=== PATIENT | male | born 1940 | race Caucasian/White ===

== ENCOUNTER → 2017-01-13 | Outpatient (CLI) | payer MEDICARE ==
[~2017-01-13] MED LIST: ASPIRIN81 M1 PO; CLOPIDOGREL75 MG PO; FUROSEMIDE40 MG PO; HCTZ PO; K-DUR20 ME1 PO; KROGER PHARMACY; LIPITOR PO; LISINOPRIL PO; LO-DOSE ASPIRIN81 M1 PO; LOPRESSOR PO; MULTIPLE VITAMI1 T11 PO; NORVASC PO; NORVASC10 MG PO; PLAVIX PO; PRINIVIL40 MG PO; RIVASTIGMINE1.5 MG PO; SEROQUEL100 MG PO; SIMVASTATIN20 MG PO; TOPROL XL PO; ZOCOR20 MG PO
--- NOTE | ~2017-01-13 | EKG ---
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
[2017-01-13 15:06] LABS: CALCIUM SERUM 9.7 mg/dL (8.4-10.2); CREATININE SERUM 1.5 mg/dL (0.6-1.4); POTASSIUM 4.8 mmol/L (3.5-5.1)
== END | disposition home or self-care (01) ==
LOC: CAMB 12:52
PROVIDERS: Surgery
DX: Z01.818 Encounter for other preprocedural examination (principal); K40.20 Bilateral inguinal hernia, without obstruction or gangrene, not specified as recurrent; R94.31 Abnormal electrocardiogram [ECG] [EKG]; Z95.0 Presence of cardiac pacemaker
CPT/HCPCS: 36415; 80048; 93005

== ENCOUNTER → 2017-01-21 | Day surgery (SDC) | payer MEDICARE ==
--- NOTE | ~2017-01-21 | OR ---
Unit #: [id number] #: [id number] Patient: SHANNON BHAKTA [id number] [facility] [place], [place] [address] [id number] O MR#: [id number] NAME: SHANNON BHAKTA. ROOM: Date of Procedure: 01/21/2017 Admission Date: 01/21/2017 Surgeon: Balbir Lee M.D. : 1940 Attending Physician: Balbir Lee M.D. Primary Care Physician: Nahomy Hardwick M.D. OPERATIVE REPORT PREOPERATIVE DIAGNOSES 1. Right-sided direct inguinal hernia incarcerated. 2. Left-sided direct inguinal hernia non-incarcerated. PROCEDURES PERFORMED 1. Laparoscopic preperitoneal inguinal hernia repair of incarcerated right inguinal hernia. 2. Laparoscopic preperitoneal inguinal hernia repair of left inguinal hernia. PROTEIN SPECIALIST Abrahan Zuluaga M.D. ANESTHESIA General endotracheal anesthesia. ESTIMATED BLOOD LOSS Minimal. IV FLUIDS 800 crystalloid. COMPLICATIONS None. INDICATIONS FOR PROCEDURE The patient is a 76-year-old gentleman with large hernia in the right side and small hernia in the left. He presents for repair. DESCRIPTION OF PROCEDURE The patient was taken to the operating theater and placed in supine position. General anesthesia was induced. The abdomen was prepped and draped. An infraumbilical incision was then made. A small incision was made in the anterior sheath. I created the preperitoneal space with blunt dissection. A Veress needle was placed intra-abdominally. The abdomen was insufflated to 15 mmHg with CO2. I then placed a 5-mm port. The patient was placed in Trendelenburg. I identified the aforementioned hernias. I had to place another 5 mm port in the left upper quadrant, so I placed traction on the small bowel that was incarcerated within the direct hernia. This was reducible. I thus released the pneumoperitoneum. Using the AutoSuture balloon dissection system, I created the preperitoneal space bilateral. I then dissected the right groin and was Unit #: [id number] #: [id number] Patient: SHANNON BHAKTA able to identify Ezio ligament. I reduced the direct hernia. I identified the cord. The cord was skeletonized and the peritoneal reflection reduced. I placed a large 3DMax mesh into position. This was anteriolized and covered the direct and indirect spaces nicely. This was secured to Ezio ligament as well as lateral anterior musculature with a SorbaFix Tacker. I then went to the other side of the table and a similar dissection on the left side. I created the lateral space and identified Ezio ligament. I then reduced the direct hernia. I identified the cord. The cord was skeletonized and the peritoneal reflection reduced. I placed a large 3DMax mesh into position. This was secured to Ezio ligament and lateral anterior musculature with a SorbaFix Tacker. This covered the direct and indirect spaces nicely. I then released my pneumopreperitoneum with care taken to avoid the peritoneum sliding posterior to the mesh. Hemostasis was adequate. I removed the ports under direct vision. The fascia was closed with 0 Vicryl and skin with 4-0 Vicryl. The patient tolerated the procedure well and sent to the recovery room in good condition. Dictated by... Rock Campbell/lorenzo TD: 01/22/2017 00:06 JOB #: [id number] OPERATIVE REPORT Page 1 of 1 X Balbir Lee MD X PROCEDURE OPERATIVE NOTE
== END | disposition home or self-care (01) ==
LOC: CSUR 07:06
DX: K40.30 Unilateral inguinal hernia, with obstruction, without gangrene, not specified as recurrent (principal); K40.90 Unilateral inguinal hernia, without obstruction or gangrene, not specified as recurrent; I25.10 Atherosclerotic heart disease of native coronary artery without angina pectoris; E78.5 Hyperlipidemia, unspecified; I10 Essential (primary) hypertension; J44.9 Chronic obstructive pulmonary disease, unspecified; I25.2 Old myocardial infarction; F32.9 Major depressive disorder, single episode, unspecified; F41.9 Anxiety disorder, unspecified; G30.9 Alzheimer's disease, unspecified; Z87.891 Personal history of nicotine dependence; Z79.82 Long term (current) use of aspirin; Z79.02 Long term (current) use of antithrombotics/antiplatelets; Z79.899 Other long term (current) drug therapy; Z95.1 Presence of aortocoronary bypass graft; Z95.0 Presence of cardiac pacemaker
CPT/HCPCS: C1781; J0290; J0330; J0690; J1580; J1644; J2405; J2710; J3010

== ENCOUNTER 2017-01-24 13:34 | Emergency (ER) | payer MEDICARE ==
[2017-01-24 14:19] LABS: URINE SOURCE CLEAN CATCH
[2017-01-24 14:22] LABS: URINE APPEARANCE CLEAR; URINE BLOOD NEG (NEG); URINE COLOR DK YELLOW; URINE GLUCOSE NEG (NEG); URINE KETONE TRACE (NEG); URINE LEUKOCYTE ESTERASE NEG (NEG); URINE NITRATE NEG (NEG); URINE PROTEIN 1+ (NEG); URINE SPECIFIC GRAVITY 1.027 (1.003-1.035)
[2017-01-24 14:24] LABS: URINE BACTERIA AUWI NEG (NEGATIVE); URINE SQUAMOUS EPITHELIAL CELL NONE SEEN /[HPF]; UWBCS1 AUWI 0-2 (0-5)
[2017-01-24 14:30] LABS: CULTURE INDICATED? NO; URINE BILIRUBIN NEG (NEG)
== END 2017-01-24 14:55 | disposition home or self-care (01) ==
LOC: CED 13:34 → CFTX 13:34
PROVIDERS: Physician Assistant
DX: R33.9 Retention of urine, unspecified (principal); I10 Essential (primary) hypertension; Z87.891 Personal history of nicotine dependence
CPT/HCPCS: 51702; 81003; 99283

== ENCOUNTER 2017-01-28 14:58 | Emergency (ER) | payer MEDICARE ==
--- NOTE | ~2017-01-28 | CR72 ---
[facility] A Service of [facility] & [facility] RADIOLOGY TEXT RESULTS PATIENT: SHANNON BHAKTA LOCATION: [facility] : 36 UNIT #: [id number] AGE: [address]: Navarro Velez MD SEX: M ORDER DR: [id number] [facility] [address] [place], [place] [address] [id number] MR#: [id number] Acc #: [id number] NAME: SHANNON BHAKTA. : 1940 SEX: M STUDY DATE/TIME: 01/28/2017 15:33 UNIT: [facility] ROOM: STUDY DESCRIPTION: CR Chest Single View Portable Attending Physician: Navarro Velez M.D. Ordering Physician: Navarro Velez M.D. Primary Care Physician: Nahomy Hardwick M.D. MEDICAL IMAGING REPORT This report is preliminary unless electronic signature is present EXAM Portable chest 01/28/2017 HISTORY Weakness, low blood pressure, shortness of air onset today. COMPARISON 04/17/2010 FINDINGS Portable view of the chest demonstrates patchy airspace opacities right upper and right lower lung could represent some unilateral edema or less likely developing airspace disease or pneumonia. No definite infiltrate seen on the left. Heart size upper limits of normal in this patient post median sternotomy and CABG. Dual lead pacemaker noted. 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 No effusions. No pneumothorax. Dictated by... Jim Boston M.D. THIS IS AN ELECTRONICALLY VERIFIED REPORT Jim Boston M.D. at 01/28/2017 10:26 PM Harvey TD: 01/28/2017 18:19 JOB #: [id number] MEDICAL IMAGING REPORT Page 1 of 1 COPY
--- NOTE | ~2017-01-28 | EKG ---
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
[2017-01-28 16:05] LABS: BASOPHIL# 0.1 X10e3 (0-0.3); EOSINOPHIL% 0.3 % (0.0-7.0); HEMOGLOBIN 13.9 gm/dL (13.0-16.0); LYMPHOCYTE# 0.7 X10e3 (1.0-3.5); LYMPHOCYTE% 9.1 % (17.0-45.0); MEAN CELL VOLUME 93.7 FL (83-96); MEAN CORPUSCULAR HGB CONC 33.1 g/dL (30-36); MEAN PLATELET VOLUME 11.1 FL (6.5-11.5); MONOCYTE# 0.8 X10e3 (0-1.0); MONOCYTE% 10.7 % (3.0-12.0); NEUTROPHIL# 5.9 X10e3 (1.5-7.1); NEUTROPHIL% 78.9 % (40-75); PLATELET COUNT 167 X10e3 (140-420); RED BLOOD COUNT 4.48 X10e (3.90-5.60); RED CELL DISTRIBUTION WIDTH 14.1 % (11.0-15.5); WHITE BLOOD COUNT 7.5 X10e3 (4.0-10.5)
[2017-01-28 16:06] LABS: DIFF IND YES
[2017-01-28 16:16] LABS: POC - CKMB 1.4 ng/mL (0.0-7.9); POC - TROPONIN <0.05 ng/mL (<=0.05)
[2017-01-28 16:24] LABS: ALBUMIN SERUM 3.3 g/dL (3.5-5.0); BILIRUBIN, DIRECT 0.2 mg/dL (0.0-0.2); BILIRUBIN,INDIRECT 1.1 mg/dL (0.0-0.9); BILIRUBIN,TOTAL 1.3 mg/dL (0.2-2.0); BUN/CREATININE RATIO 14.11; CALCIUM SERUM 8.7 mg/dL (8.4-10.2); CREATININE SERUM 1.7 mg/dL (0.6-1.4); GLOM FILT RATE Estimated 37.8 mL/min (>60); POTASSIUM 4.1 mmol/L (3.5-5.1); PROTEIN TOTAL SERUM 6.9 g/dL (6.0-8.3)
[2017-01-28 16:29] LABS: BURR CELLS PRESENT; OVALOCYTES PRESENT; PLATELET ESTIMATE NORMAL (NORMAL); POIKILOCYTOSIS SL
[2017-01-28 19:25] LABS: URINE APPEARANCE CLOUDY; URINE BLOOD 3+ (NEG); URINE COLOR DK YELLOW; URINE GLUCOSE NEG (NEG); URINE KETONE 2+ (NEG); URINE LEUKOCYTE ESTERASE TRACE (NEG); URINE NITRATE NEG (NEG); URINE SPECIFIC GRAVITY 1.026 (1.003-1.035)
[2017-01-28 19:27] LABS: CULTURE INDICATED? YES; URBCS1 AUWI 25-50 /[HPF] (0-2); URINE SQUAMOUS EPITHELIAL CELL OCC /[HPF]
[2017-01-28 19:28] LABS: URINE PROTEIN 1+ (NEG)
[2017-01-28 19:38] LABS: URINE BILIRUBIN NEG (NEG); URINE SOURCE CATH
[2017-01-28 19:40] LABS: URINE BACTERIA AUWI 2+ (NEGATIVE)
[2017-01-28 19:41] LABS: URINE GRANULAR CAST 0-2 /[HPF]
== END 2017-01-28 20:34 | disposition home or self-care (01) ==
LOC: CED 14:58
PROVIDERS: Emergency Medicine
DX: E86.1 Hypovolemia (principal); N30.00 Acute cystitis without hematuria; I95.9 Hypotension, unspecified; I25.2 Old myocardial infarction; E78.5 Hyperlipidemia, unspecified; J44.9 Chronic obstructive pulmonary disease, unspecified; I25.10 Atherosclerotic heart disease of native coronary artery without angina pectoris; Z79.899 Other long term (current) drug therapy
CPT/HCPCS: 71010; 80048; 80076; 81003; 82553; 82947; 84484; 85025; 87086; 93005; 96361; 96374; 99284